=== PATIENT | female | born 1930 ===

== ENCOUNTER 2017-05-30 10:42 | Day surgery (SDC) | payer MEDICARE, OTHER ==
[2014-11-08 11:29] VITALS: BMI 26.4
[2017-05-30 11:32] VITALS: RESP 18; TEMP 97.9
[2017-05-30 11:38] LABS: BASO # 0.29 K/mm3 (0.0-2.0); BASO % 0.2 % (0.0-3.0); EOS # 0.2 (0.0-0.7); EOS % 0.1 % (1.5-5.0); GRAN # 3.59 (1.4-6.5); HEMATOCRIT 42.4 % (36.0-48.0); LYMPH # 115.7 (1.2-3.4); LYMPH % 94.4 % (22.0-35.0); MEAN CELL VOLUME 92.2 fl (80.0-105.0); MEAN CORPUSCULAR HEMOGLOBIN 29.6 pg (25.0-35.0); MEAN CORPUSCULAR HGB CONC 32.1 g/dl (31.0-37.0); MEAN PLATELET VOLUME 11.7 fl (7.0-11.0); MONO # 2.8 (0.1-0.6); MONO % 2.3 % (1.0-6.0); PLATELET COUNT 118 10^3/uL (120.0-450.0); RED CELL DISTRIBUTION WIDTH 16.7 % (11.5-14.5)
[2017-05-30 11:41] LABS: WHITE BLOOD COUNT 122.6 10^3/ul (4.5-11.0)
[2017-05-30 11:55] LABS: ATYPICAL LYMPHOCYTE 2 % (0.0-0.0); NEUTROPHIL 3 % (50.0-70.0); PLATELET ESTIMATE LOW (NORMAL)
[2017-05-30 11:59] LABS: INR 1.43 (0.93-1.08)
[2017-05-30 12:45] LABS: CALCIUM 9.8 mg/dL (8.4-10.5)
[2017-05-30] MEDS ORDERED: Lidocaine 2% Inj (20ml) ONE (13:44)
[2017-05-30] MEDS ORDERED: Sodium Chloride 0.45% 1,000 ML IV SCH (15:00)
[2017-05-30 15:52] VITALS: O2SAT 97
[2017-05-30 16:24] VITALS: BP 136/70; PULSE 60
--- NOTE | 2017-05-30 20:42 | VASCULAR ---
PROCEDURE: Removal of tunneled right internal jugular venous access port. CLINICAL HISTORY: Lung carcinoma. Malfunctioning port. PHYSICIAN(S): Martínez Martinez M.D. TECHNIQUE: The relative risks and indications of the procedure were explained to the patient and consent obtained. The patient was placed supine on the arteriogram table and the right neck and chest prepped and draped usual sterile fashion. Conscious sedation monitoring were provided throughout the procedure by a nurse. 1% Xylocaine was used to anesthetize the skin and soft tissues at the port. A 4 cm incision was made. The port was bluntly dissected and removed. The catheter was removed under fluoroscopic guidance. No retained catheter fragments were seen. The pocket was lavaged with normal saline. The pocket was closed in 2 layers. The patient tolerated the procedure well. IMPRESSION: 1. Removal of tunneled right internal jugular venous access port.
== END 2017-05-30 16:20 | disposition home or self-care (01) ==
LOC: SDS 10:42
PROVIDERS: ATTEND Radiology Vascular & Interventional Radiology
DX: Z45.2 Encounter for adjustment and management of vascular access device (principal); C34.90 Malignant neoplasm of unspecified part of unspecified bronchus or lung
CPT/HCPCS: 36415; 36590; 80048; 85025; 85610; 85730; 99152; C1760; J1644; J2405; J3010; J7030